=== PATIENT | male | born 1980 | race Caucasian/White ===

== ENCOUNTER 2018-11-25 07:04 | Day surgery (SDC) | payer BC ==
[~2018-11-25 07:04] MED LIST: Lactated Ringers 1,000 ML IV SCH; Lidocaine 1%/Sod Bicarbonate in NS 8.4% 1 ML Syringe IDERM PRN; Sodium Chloride 0.9% 10 ML Syringe FLUSH PRN
[2018-11-25] MEDS ORDERED: Propofol 200 MG/20 ML SDV ONE (07:20)
[2018-11-25] MEDS ORDERED: fentaNYL 100 MCG/2 ML SDV ONE (07:20)
[2018-11-25] MEDS ORDERED: Lidocaine 1% 4 ML ONE (07:20)
--- NOTE | 2018-11-25 07:24 | PCM.HP ---
H&P History of Present Illness - General Date of Service: 11/25/18 Source of Information: Patient - History of Present Illness Initial Comments - Free Text/Narative: 38 year old male referred by Rosa Colby NP for nausea, vomiting, hematemesis. The patient presents today for diagnostic EGD with possible biopsies. The patient was initially evaluated on 10/25/2018. He denied any major changes to his health history since that visit. He does report he flew to [place] and caught a flu. He reports he was evaluated in a ER over four days ago and was given tylenol and IV fluid. He was not told he was influenza positive. He reports he did have lab draws, but is uncertain of results. He reports he is feeling better. Denies any fevers or need for antipyretics. He does still have a productive cough with green sputum at times. He reports he did Day Surgery about this yesterday. He has some hoarseness, but reports he is feeling "great." The patient initially reported that around a year ago he started having nausea, vomiting and blood specked vomiting. He also has nausea if he wakes up early in the morning. He will have vomiting if he wakes up early in the morning as well. He reports that after vomiting he is fine the rest of the day. Denies any coffee -ground emesis. Denies any melena. 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 No specific foods seem to trigger symptoms. He reports he wakes up slowly on his own later in the morning he will not have nausea or vomiting or hematemesis. He previously denied any reflux or heartburn. NO dysphagia. No prior EGD. He had started on PPI therapy on and this did not seem to help symptoms. He does have a history of at one point drinking sweet tea and Mountain Dew up to 5 L a day. He did stop this around October 19. He reported rare ibuprofen use for headaches. Alcohol use was occasional. Hgb was 15.5 on 10 19. He denies any problems with constipation, diarrhea, medications or blood on tissue paper when wiping. Bowel movements are regular and easy to pass. He has no history of inflammatory bowel disease. He denies any family history of inflammatory bowel disease or GI cancer. He has never had a colonoscopy.. Abdomen Pain Score (Numeric/FACES): 0 - Related Data Allergies/Adverse Reactions: Allergies Allergy/AdvReac Type Severity Reaction Status Date / Time aspirin AdvReac epistaxis Verified 11/24/18 12:54 Home Medications: Home Meds Aspirin/Acetaminophen/Caffeine [Migraine Relief Caplet] 2 tab PO BID PRN [History] metFORMIN HCl [Metformin HCl] 1,000 mg PO DAILY 11/24/18 [History] Past Medical History HEENT History: Reports: Other (See Below) Other HEENT History: oral surgery, epistaxis Cardiovascular History: Reports: None Respiratory History: Reports: None Gastrointestinal History: Reports: None Genitourinary History: Reports: None 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 History: Reports: None Musculoskeletal History: Reports: Gout Neurological History: Reports: None Psychiatric History: Reports: None Endocrine/Metabolic History: Reports: Diabetes, Type II Hematologic History: Reports: None Immunologic History: Reports: None Oncologic (Cancer) History: Reports: None Dermatologic History: Reports: None - Past Surgical History Head Surgeries/Procedures: Reports: None HEENT Surgical History: Reports: None Cardiovascular Surgical History: Reports: None Respiratory Surgical History: Reports: None GI Surgical History: Reports: None Female Surgical History: Reports: None Male Surgical History: Reports: None Endocrine Surgical History: Reports: None Neurological Surgical History: Reports: None Musculoskeletal Surgical History: Reports: None Oncologic Surgical History: Reports: None Dermatological Surgical History: Reports: None Social & Family History - Tobacco Use Smoking Status *Q: Current Every Day Smoker Years of Tobacco use: 20 Packs/Tins Daily: 1 - Caffeine Use Caffeine Use: Reports: None - Recreational Drug Use Recreational Drug Use: No Drug Use in Last 12 Months: No H&P Review of Systems - Review of Systems: Review Of Systems: ROS reveals no pertinent complaints other than HPI. Free Text/Narrative: Denies any exertional chest pain or shortness of breath. No history of any easy bleeding or bruising. No personal or family history of clotting or bleeding disorders. No history of anesthesia complications. No family history of anesthesia complications. No presence of chest pain, palpitations, lower extremity edema, dyspnea at rest , orthopnea, claudication, wheezing, sleep apnea. Does admit to snoring. No witnessed apnea. No chronic cough. No history of blood thinner use. No history of anemia. No joint replacement her heart valve placement. No seizures stroke. No fever chills or night sweats. All other systems reviewed and were negative except per history of present illness. Exam - Exam Exam: See Below - Exam General: Alert, Oriented, Cooperative HEENT: Conjunctiva Clear Lungs: Normal Respiratory Effort, Wheezing (upper posterior lobes ). No: Crackles, Rales, Rhonchi Cardiovascular: Regular Rate, Regular Rhythm, Normal S1, Normal S2 GI/Abdominal Exam: Non-Tender Extremities: Normal Inspection Skin: Warm, Dry, Intact Neurological: Normal Speech Neuro Extensive - Mental Status: Alert, Oriented x3, Normal Mood/Affect, Normal Cognition, Memory Intact Psychiatric: Alert, Normal Affect, Normal Mood - Problem List (1) Nausea & vomiting SNOMED Code(s): 22158848 ICD Code: R11.2 - NAUSEA WITH VOMITING, UNSPECIFIED Status: Acute Current Visit: Yes (2) Hematemesis SNOMED Code(s): 6476302 ICD Code: K92.0 - HEMATEMESIS Status: Acute Current Visit: Yes Qualifiers: Nausea presence: with nausea Qualified Code(s): K92.0 - Hematemesis Problem List Initiated/Reviewed/Updated: Yes Orders Last 24hrs: Active Orders 24 hr Category Date Time Status Peripheral IV Care [RC] . DIRECTED Care 11/25/18 00:01 Active Verify Patient Consent Obtain [RC] ASDIRECTED Care 11/25/18 00:01 Active Lactated Ringers [Ringers, Lactated] 1,000 ml Med 11/25/18 00:01 Active IV ASDIRECTED Lidocaine 1%/Sod Bicarbonate [Buffered Lidocaine 1% in Med 11/25/18 00:01 Active NS 8.4%] 0.25 ml IDERM ONETIME PRN Sodium Chloride 0.9% [Saline Flush] Med 11/25/18 00:01 Active 10 ml FLUSH ASDIRECTED PRN Medication Administration Instruction [OM.PC] Routine Oth 11/25/18 00:01 Ordered Peripheral IV Insertion Adult [OM.PC] Routine Oth 11/25/18 00:01 Ordered Medication Orders Lactated Ringer's (Ringers, Lactated) 1,000 mls @ 125 mls/hr IV ASDIRECTED BONNIE Stop: 11/25/18 23:00 Lidocaine/Sodium Bicarbonate (Buffered Lidocaine 1% In Ns 8.4%) 0.25 ml IDERM ONETIME PRN PRN Reason: Prior to IV Start Stop: 11/25/18 18:00 Sodium Chloride (Saline Flush) 10 ml FLUSH ASDIRECTED PRN PRN Reason: Keep Vein Open Stop: 11/25/18 18:00 Assessment/Plan Comment:: 38-year-old male with nausea, vomiting, hematemesis, need for diagnostic EGD with possible biopsies Plan: We discussed performing a diagnostic EGD with possible biopsies. We discussed procedure and post operative expectations. This procedure will be done at [facility] due to BMI of 40.73. Patient does report occasional productive cough and has some wheezes on exam. Anesthesia was updated by nursing staff. Anticipate nebulizer treatment prior to EGD. Dr. Mejia, updated regarding patient cough/wheezes. I personally reviewed the patient's previous medical records and laboratory studies. Patient verbalized understanding and agreed with current care. Dayna Mayers NP General Surgery
[2018-11-25] MEDS ORDERED: Albuterol 0.083% 2.5 MG/3 ML Neb Soln NEB ONE (07:49)
--- NOTE | 2018-11-25 08:02 | PCM.PREANE ---
Preanesthetic Assessment - Procedure Proposed Procedure: Diagnostic EGD - Anesthesia/Transfusion/Family Hx Anesthesia History: No Prior Anesthesia Family History of Anesthesia Reaction: No Transfusion History: No Prior Transfusion(s) - Review of Systems General: No Symptoms Pulmonary: Cough (Occasional Cough, sometimes productive. History of a cold from about 10 days ago. Denies SOB, feels much better now, afebrile. ) Cardiovascular: No Symptoms Gastrointestinal: Nausea, Vomiting (None at this time.) Neurological: No Symptoms Other: Reports: Diabetes (Pre-Diabetes, lost 30lbs and is off his metformin now. AM Blood Glucose is 105mg/dl. ) - Physical Assessment NPO Status Date: 11/24/18 NPO Status Time: 22:30 O2 Sat by Pulse Oximetry: 95 Respiratory Rate: 20 Vital Signs: Last Vital Signs Temp 36.9 C 11/25/18 07:10 Pulse 81 11/25/18 07:10 Resp 20 11/25/18 07:10 BP 118/76 11/25/18 07:10 Pulse Ox 95 11/25/18 07:10 Height: 1.8 m Weight: 128.367 kg ASA Class: 2 Mental Status: Alert & Oriented x3 Airway Class: Mallampati = 3 Dentition: Reports: Normal Dentition Thyro-Mental Finger Breadths: 3 Mouth Opening Finger Breadths: 3 ROM/Head Extension: Full Lungs: Clear to Auscultation, Normal Respiratory Effort Cardiovascular: Regular Rate, Regular Rhythm - Lab Values: Laboratory Last Values POC Glucose 105 mg/dL (70-105) 11/25/18 07:27 - Allergies Allergies/Adverse Reactions: Allergies Allergy/AdvReac Type Severity Reaction Status Date / Time aspirin AdvReac epistaxis Verified 11/24/18 12:54 - Acknowledgements Anesthesia Type Planned: MAC Pt an Appropriate Candidate for the Planned Anesthesia: Yes Alternatives and Risks of Anesthesia Discussed w Pt/Guardian: Yes Pt/Guardian Understands and Agrees with Anesthesia Plan: Yes PreAnesthesia Questionnaire HEENT History: Reports: Other (See Below) Other HEENT History: oral surgery, epistaxis Cardiovascular History: Reports: None Respiratory History: Reports: None Gastrointestinal History: Reports: None Genitourinary History: Reports: None PSYCHOLOGY ASSOCIATE History: Reports: None Musculoskeletal History: Reports: Gout Neurological History: Reports: None Psychiatric History: Reports: None Endocrine/Metabolic History: Reports: Diabetes, Type II Hematologic History: Reports: None Immunologic History: Reports: None Oncologic (Cancer) History: Reports: None Dermatologic History: Reports: None - Past Surgical History Head Surgeries/Procedures: Reports: None HEENT Surgical History: Reports: None Cardiovascular Surgical History: Reports: None Respiratory Surgical History: Reports: None GI Surgical History: Reports: None Female Surgical History: Reports: None Male Surgical History: Reports: None Endocrine Surgical History: Reports: None Neurological Surgical History: Reports: None Musculoskeletal Surgical History: Reports: None Oncologic Surgical History: Reports: None Dermatological Surgical History: Reports: None - SUBSTANCE USE Smoking Status *Q: Current Every Day Smoker Recreational Drug Use History: No - HOME MEDS Home Medications: Home Meds Aspirin/Acetaminophen/Caffeine [Migraine Relief Caplet] 2 tab PO BID PRN [History] metFORMIN HCl [Metformin HCl] 1,000 mg PO DAILY 11/24/18 [History] - CURRENT (IN HOUSE) MEDS Current Meds: Current Medications Lactated Ringer's (Ringers, Lactated) 1,000 mls @ 125 mls/hr IV ASDIRECTED BONNIE Stop: 11/25/18 23:00 Last Admin: 11/25/18 07:35 Dose: 125 mls/hr Lidocaine/Sodium Bicarbonate (Buffered Lidocaine 1% In Ns 8.4%) 0.25 ml IDERM ONETIME PRN PRN Reason: Prior to IV Start Stop: 11/25/18 18:00 Last Admin: 11/25/18 07:24 Dose: 0.25 ml Sodium Chloride (Saline Flush) 10 ml FLUSH ASDIRECTED PRN PRN Reason: Keep Vein Open Stop: 11/25/18 18:00 Discontinued Medications Albuterol (Proventil Neb Soln) 2.5 mg NEB ONETIME ONE Stop: 11/25/18 07:50 Fentanyl (Sublimaze) Confirm Administered Dose 100 mcg .ROUTE .STK-MED ONE Stop: 11/25/18 07:21 Lidocaine HCl (Xylocaine-Mpf 1%) Confirm Administered Dose 4 mls @ as directed .ROUTE .STK-MED ONE Stop: 11/25/18 07:21 Propofol (Diprivan 20 Ml) Confirm Administered Dose 400 mg .ROUTE .STK-MED ONE Stop: 11/25/18 07:21
[2018-11-25] MEDS ORDERED: Dexamethasone 4 MG/ML SDV ONE (08:05)
[2018-11-25] MEDS ORDERED: Ketamine 500 mg/10 ML MDV ONE (08:06)
[2018-11-25] MEDS ORDERED: Midazolam 1 MG/ML 2 ML SDV ONE (08:06)
[2018-11-25] MEDS ORDERED: Ondansetron 4 MG/2 ML SDV ONE (08:33)
--- NOTE | 2018-11-25 08:41 | PCM.OPNOTE ---
- General Post-Op/Procedure Note Date of Surgery/Procedure: 11/25/18 Operative Procedure(s): EGD with biopsy Findings: Esophagitis, gastritis and duodenopathy Pre Op Diagnosis: Nausea, vomiting, and hematemesis Post-Op Diagnosis: same Anesthesia Technique: MAC Primary Surgeon: Saumya Mejia Anesthesia Provider: Dipti Schmitt Pathology: 1. Gastric antrum mucosa 2. lesser curvature mucosa Fluid Replacement, Intraop: 700 Output, Urine Amount: 0 EBL in mLs: 0 Complications: none apparent Condition: Good
--- NOTE | 2018-11-25 08:46 | PCM48HPAN ---
Post Anesthesia Note - EVALUATION WITHIN 48HRS OF ANESTHETIC Vital Signs in Normal Range: Yes Patient Participated in Evaluation: Yes Respiratory Function Stable: Yes Airway Patent: Yes Cardiovascular Function Stable: Yes Hydration Status Stable: Yes Pain Control Satisfactory: Yes Nausea and Vomiting Control Satisfactory: Yes Mental Status Recovered: Yes Pulse Rate: 87 SaO2: 96 Resp Rate: 20 Temperature: 98.2 C Blood Pressure: 118/74
--- NOTE | 2018-11-25 08:51 | PCM.PRNOTE ---
- Free Text/Narrative Note: Operative Report Date of procedure: November 25, 2018 Preoperative diagnosis: , Nausea, vomiting, hematemesis Postoperative diagnosis: Same Surgeon: Saumya Mejia M.D. Procedure: EGD with biopsy Anesthesia: MAC Anesthesiologist: Dipti Schmitt CRNA IV fluids: 700 mL crystalloid Estimated blood loss: 0 mL Specimens: 1. Gastric antrum mucosa 2. Gastric Lesser curvature mucosa Indication: The patient is a 38 -year-old gentleman who presented with nausea , vomiting and hematemesis. The patient was consented for an EGD with biopsy. Risk of bleeding and perforation were discussed. The patient's consent was obtained Description of the procedure: The patient was taken to the endoscopy suite and placed on hemodynamic monitoring. The nurse densitometrist induced MAC anesthesia. A bite block was placed. The patient was positioned in the left lateral decubitus position. A timeout was performed. The endoscope was gently placed into the mouth to the back of the pharynx and introduced into the esophagus. The scope was gently advanced under direct visualization down to the level of the lower esophageal sphincter. The stomach was then entered. Normal rugal folds were noted. The scope was advanced into the antrum. We noted gastritis with a few scattered flecks of old blood in the antrum. Biopsies were taken of the mucosa with cold biopsy forceps for H. pylori testing. The pylorus was then entered and the first and second portion of the duodenum was inspected. We did note some duodenopathy in the bulb of the duodenum. There were no ulcerations in the duodenum. The scope was then retroflexed in the cardia and fundus were investigated. . There was irregularity of the mucosa with evidence of gastritis near the GE junction on the lesser curvature. Biopsies were taken of this mucosa using cold biopsy forceps. There is no evidence of any hiatal hernia. No other abnormalities were noted. The scope was then withdrawn while inspecting the esophagus. There was esophagitis with discoloration of the mucosa in the distal esophagus as well as evidence of healing lesions. The Z line was regular. The procedure was terminated. the patient tolerated the procedure well without any evidence of complications. Instructions: The patient needs to resume taking his PPI. Patient needs to quit smoking. Will follow up in clinic Saumya Mejia MD General Surgery
== END 2018-11-25 09:40 | disposition home or self-care (01) ==
LOC: JD.SDS 07:04
PROVIDERS: ATTEND Surgery
DX: K92.0 Hematemesis (principal); K29.70 Gastritis, unspecified, without bleeding; M10.9 Gout, unspecified; E11.9 Type 2 diabetes mellitus without complications; F17.210 Nicotine dependence, cigarettes, uncomplicated; Z88.6 Allergy status to analgesic agent; Z79.82 Long term (current) use of aspirin; Z79.84 Long term (current) use of oral hypoglycemic drugs
CPT/HCPCS: 43239; 82962; 94640; J1100; J2250; J2405; J2704; J3010; J7120; 00731; J2001